=== PATIENT | female | born 1950 | race Caucasian/White ===

== ENCOUNTER → 2024-01-05 07:34 | Outpatient (REF) | payer OTHER, SELFPAY | LOC: EMG 07:34 | PROVIDERS: ATTENDING PHYSICIAN Family Medicine | DX: R20.0 Anesthesia of skin (principal) | CPT/HCPCS: 95886; 95909 ==

== ENCOUNTER → 2024-02-25 15:13 | Outpatient (REF) | payer OTHER, SELFPAY | LOC: HWWDC 15:13 | PROVIDERS: ATTENDING PHYSICIAN Family Medicine | DX: Z12.31 Encounter for screening mammogram for malignant neoplasm of breast (principal) | CPT/HCPCS: 77063; 77067 ==

== ENCOUNTER → 2024-05-12 16:38 | Outpatient (REF) | payer OTHER, SELFPAY | LOC: RAD 16:38 | PROVIDERS: ATTENDING PHYSICIAN Family Medicine | DX: M25.511 Pain in right shoulder (principal); M79.621 Pain in right upper arm | CPT/HCPCS: 73030; 73060 ==

== ENCOUNTER → 2025-09-06 10:15 | Outpatient (REF) | payer OTHER, SELFPAY | LOC: RAD 10:15 | PROVIDERS: ATTENDING PHYSICIAN Family Medicine | DX: M25.511 Pain in right shoulder (principal) | CPT/HCPCS: 73030 ==